=== PATIENT | female | born 1980 | race Two or more races ===

== ENCOUNTER 2020-01-20 18:15 | Emergency (ER) | payer BC, MEDICAID ==
[~2020-01-20] VITALS: Ht 154.9 cm; Wt 50.0 kg
[2020-01-20] MEDS ORDERED: KETOROLAC 60MG/2ML VIAL IM ONE (19:00)
[2020-01-20 19:10] LABS: CLARITY URINE CLEAR (CLEAR); COLOR URINE YELLOW (YELLOW); KETONES URINE 4+ (NEGATIVE); LEUKOCYTE ESTERASE URINE NEGATIVE (NEGATIVE); NITRITE URINE NEGATIVE (NEGATIVE); OCCULT BLOOD URINE 2+ (NEGATIVE); PH URINE 6.5 (4.5-8.0); PROTEIN URINE TRACE (NEGATIVE); SPECIFIC GRAVITY URINE 1.029 (1.005-1.030)
[2020-01-20 19:12] LABS: HEMATOCRIT 38.4 % (36.0-48.0); HEMOGLOBIN 12.9 g/dL (12.0-16.0); MEAN CORPUSCULAR HEMOGLOBIN 28.4 pg (28.0-32.0); PLATELET 263 x1000/uL (130-400); RED BLOOD CELL COUNT 4.52 mill/uL (4.2-5.4); RED CELL DISTRIBUTION WIDTH 13.1 % (11.6-14.6)
[2020-01-20 19:22] LABS: CHLORIDE 106 mEq/L (98-107)
[2020-01-20] MEDS ORDERED: ONDANSETRON 4MG ODT PO ONE (19:30)
[2020-01-20 22:00] VITALS: BP 95/53
== END 2020-01-20 22:32 | disposition home or self-care (01) ==
LOC: ER 18:15
DX: R10.2 Pelvic and perineal pain (principal); N92.1 Excessive and frequent menstruation with irregular cycle; Z88.0 Allergy status to penicillin
CPT/HCPCS: 36415; 80048; 81003; 81025; 85027; 96372; 99283; J1885; Q0162